=== PATIENT | female | born 1950 | race Caucasian/White ===

== ENCOUNTER 2018-08-24 11:18 | Observation (INO) | payer MEDICARE ==
[~2018-08-24] VITALS: Ht 167.6 cm; Wt 97.5 kg
--- NOTE | ~2018-08-24 | CON ---
[address] [address] CONSULTATION Name: JOSE WALTON Abimael Room: [address] IN .R.#: [id number] Admission: 08/24/18 Attend Phys: Robert Aguilar MD Discharge: Date of : 54 Report #: [id number] THIS REPORT FOR: //name// CC: Esequiel Aguilar DATE OF SERVICE: 08/25/2018 HISTORY OF PRESENT ILLNESS: This is a 67-year-old female patient, who was evaluated by me for an episode of headache, facial weakness, some visual blurring yesterday. All her symptoms have resolved. She has a longstanding history of migraine. She indicates that if she sticks to proper diet, she gets migraine headache once every few months. She does not believe she ever had visual symptoms like this before. She apparently had some speech difficulty also. She underwent a CT scan of the head and subsequently she underwent CT angiogram that was also unremarkable, although the posterior circulation is not well seen because of the timing. The patient continued to be stable. She was not on aspirin or any cholesterol medication. REVIEW OF SYSTEMS: Indicate that she does have a history of migraine. She was having a viral syndrome with nausea, vomiting, and diarrhea. She does have a history of depression and a history of hemangioma. Otherwise, the 14-point review of system is unremarkable. I do not think she had a very good neurological followup. She denies any eye, ENT, cardiac, respiratory, GI, , musculoskeletal, constitutional, dermatological, hematological, psychiatric, throat, allergic symptoms associated with present symptomatology. PAST MEDICAL HISTORY: Positive for migraine. FAMILY HISTORY: Unremarkable. SOCIAL HISTORY: She does not smoke or drink alcohol on a regular basis. PHYSICAL EXAMINATION: Indicates she is alert and responsive. She can follow simple commands. Her speech, concentration, fund of knowledge and memory is at her baseline. Cranial nerve examination 2-12 looks unremarkable. She has symmetrical strength, sensation, reflexes, and tone in all 4 extremities. There is no meningeal sign. There is no carotid bruit. Pulses are palpable. She has no edema, cyanosis, or jaundice. Cardiac examinations appear unremarkable. No respiratory difficulty was noticed. Blood pressure is 145/90, respirations 16, pulse is 80, temperature is 98. This patient is pretty significantly anemic at hemoglobin of 8.8. IMPRESSION: This patient had symptoms suggestive of TIA. I do not know if she had a small stroke or not. 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 [address] CONSULTATION Name: JOSE WALTON Room: [address] IN .R.#: [id number] Admission: 08/24/18 Attend Phys: Robert Aguilar MD Discharge: Date of : 54 Report #: [id number] RECOMMENDATIONS: The next step will be doing an MRI in this patient. The patient is extremely claustrophobic and does not want to do the MRI here. She wants to go home and do the MRI as an outpatient in open [facility]. Since her CT angiogram is okay, it will be okay to let her go, but she needs to get that MRI pretty soon. She will also need MRI of the brain and we will go ahead and do an MRA of the elim ira of [place] since the pictures of the posterior circulation was not very good on the CT angiogram. I will check sed rate in this patient. We will try to arrange that. She needs the workup for her anemia. This is because she is going to be on aspirin and a GI pathology must be excluded before she is put on aspirin. I will defer that to Dr. Aguilar. I did discuss that aspect with the patient. We can help arrange the MRI for this patient and I asked her to contact my office. Thank you very much for this referral and if you have any questions, please feel free to contact me. The patient was discussed with Dr. Aguilar. By: 1025 1216Thong Adler MD /demi
[~2018-08-24 11:18] MED LIST: EFFEXOR XR37.5 MG PO; FLEXERIL PO; PREVACID 30MG C30 M1 PO; RELPAX40 MG PO; TOPROL XL25 MG PO; XANAX XR1 MG PO
[2018-08-24 11:25] VITALS: BP 185/95
[2018-08-24] MEDS ORDERED: PROTONIX 20 MG20 M1 PO (11:48)
[2018-08-24 11:49] LABS: ABSOLUTE BASOPHILS 0.1 thou/uL (0.0-0.2); ABSOLUTE EOSINOPHILS 0.1 thou/uL (0.0-0.7); ABSOLUTE LYMPHOCYTES 1.6 thou/uL (0.8-5.3); ABSOLUTE MONOCYTES 0.4 thou/uL (0.0-1.2); ABSOLUTE NEUTROPHILS 4.6 thou/uL (1.6-8.1); BASOPHILS 1.1 %; EOSINOPHILS 1.1 %; HEMATOCRIT 30.5 % (37.0-47.0); HEMOGLOBIN 9.6 gm/dL (12.0-15.0); LYMPHOCYTES 24.1 %; MCH 23.2 pg (26.0-34.0); MCHC 31.6 g/dL (28.0-37.0); MCV 73.2 fL (80.0-100.0); MONOCYTES 5.8 %; MPV 7.4 fl. (7.2-11.1); NUCLEATED RBCS 0 /100WBC; PLATELET COUNT* 355 thou/uL (150-400); POLYS 67.9 %; RBC 4.16 mil/uL (4.20-5.00); RDW-CV 18.6 % (10.5-14.5); WBC 6.8 thou/uL (4.0-11.0)
[2018-08-24 11:59] LABS: ANION GAP 13 mmol/L (7-16); BUN 8 mg/dL (7-18); CALCIUM 8.6 mg/dL (8.5-10.1); CHLORIDE 103 mmol/L (98-107); CO2 25 mmol/L (21-32); CREATININE 0.7 mg/dL (0.6-1.3); GLUCOSE 117 mg/dL (70-99); POTASSIUM 3.6 mmol/L (3.5-5.1); SODIUM 141 mmol/L (136-145)
[2018-08-24 12:01] LABS: APTT 24.3 Seconds (25.0-31.3); PROTIME 10.1 Seconds (9.20-11.50)
[2018-08-24 12:09] LABS: ALBUMIN 3.6 g/dL (3.4-5.0); ALKALINE PHOSPHATASE 184 U/L (46-116); NT-PRO BRAIN NAT PEPTIDE 165 pg/mL (<300); SGOT 19 U/L (15-37); SGPT 29 U/L (30-65); TOTAL BILIRUBIN 0.3 mg/dL (<0.1-1.0); TOTAL PROTEIN 7.3 g/dL (6.4-8.2); TROPONIN-I LEVEL <0.06 ng/mL (<0.06)
[2018-08-24 13:27] VITALS: BP 171/77
--- NOTE | 2018-08-24 14:20 | EKG ---
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1950 Requested By: Genevieve Davenport Order Number: [id number] MD: Noel Petty Measurements Intervals [place] Rate: 84 P: 14 DE: 171 QRS: 34 QRSD: 91 T: 42 QT: 403 QTc: 477 Interpretive Statements Sinus rhythm Abnormal R-wave progression, early transition Compared to ECG 03/30/2016 15:58:32 Sinus tachycardia no longer present Electronically Signed On 08-24-2018 14:20:04 CDT by Noel Petty [email or web address] <ELECTRONICALLY SIGNED> By: Noel Petty MD, [facility] 08/24/18 1420 1147 1147 Noel Petty MD, [facility] /EPI
[2018-08-24 14:29] LABS: % SATURATION 5 % (20-39); IRON 25 ug/dL (50-175)
--- NOTE | 2018-08-24 15:43 | 2DMMODE ---
[place] [address] 2 D/M-MODE ECHOCARDIOGRAM Name: JOSE WALTON Abimael Room: [place] [address] ADM IN [facility]#: [id number] Admission: 08/24/18 Attend Phys: Robert Aguilar, Discharge: Date of : 54 Date of Service: 08/24/18 1543 Report #: [id number] THIS REPORT FOR: //name// APPROVED REPORT Study performed: 08/24/2018 14:29:29 EXAM: Comprehensive 2D, Doppler, and color-flow Echocardiogram Patient Location: In-Patient Room #: er Status: routine BSA: 1.96 HR: 84 bpm BP: 171/77 mmHg Rhythm: NSR Other Information Study Quality: Good Indications CVA/TIA Echo Enhancing Agent Indication: Rule out Shunt Agent(s) / Amount(s) Used: Agitated Saline 10 cc 2D Dimensions IVSd: 12.26 (7-11mm) LVOT Diam: 20.10 (18-24mm) LVDd: 31.43 mm PWd: 12.81 (7-11mm) Ascending Ao: 30.23 (22-36mm) LVDs: 21.81 (25-40mm) Volumes Left Atrial Volume (Systole) LA ESV Index: 36.70 mL/m2 Aortic Valve AoV Peak Lee.: 1.63 m/s AO Peak Gr.: 10.65 mmHg LVOT Max P.52 mmHg AO Mean Gr.: 5.51 mmHg LVOT Mean P.50 mmHg LVOT Max V: 1.37 m/s AO V2 VTI: 32.33 cm LVOT Mean V: 0.85 m/s KIRSTEN (VTI): 2.84 cm2 LVOT V1 VTI: 28.96 [place] [address] 2 D/M-MODE ECHOCARDIOGRAM Name: JOSE WALTON Room: [address] IN ..#: [id number] Admission: 08/24/18 Attend Phys: Robert Aguilar, Discharge: Date of : 54 Date of Service: 08/24/18 1543 Report #: [id number] E/A Ratio: 0.63 MV Decel. Time: 149.18 ms MV E Max Lee.: 0.67 m/s MV PHT: 43.26 ms MVA (PHT): 5.09 cm2 TDI E/Lateral E': 6.70 E/Medial E': 9.57 Medial E' Lee.: 0.07 m/s Lateral E' Lee.: 0.10 m/s Pulmonary Valve PV Peak Lee.: 1.05 m/s PV Peak Gr.: 4.42 mmHg Tricuspid Valve RAP Estimate: 5.00 mmHg TR Peak Gr.: 25.73 mmHg RVSP: 30.00 mmHg PA Pressure: 30.00 mmHg Left Ventricle The left ventricle is normal size. There is normal LV segmental wall motion. Mild concentric left ventricular hypertrophy. Left ventricular systolic function is normal. The left ventricular ejection fraction is within the normal range. LVEF is 65-70%. Grade I - abnormal relaxation pattern. Right Ventricle The right ventricle is normal size. The right ventricular systolic function is normal. Atria Left atrium is mildly dilated. Interatrial septum is intact without evidence of ASD or PFO. The right atrium size is normal. Aortic Valve The aortic valve is normal in structure. No aortic regurgitation is present. There is no aortic valvular stenosis. Mitral Valve The mitral valve is normal in structure. There is no mitral valve regurgitation noted. No evidence of mitral valve stenosis. Tricuspid Valve The tricuspid valve is normal in structure. Trace tricuspid regurgitation. estimated pa pressure 30 [place] [address] 2 D/M-MODE ECHOCARDIOGRAM Name: JOSE WALTON Room: [address] IN [facility].#: [id number] Admission: 08/24/18 Attend Phys: Robert Aguilar, Discharge: Date of : 54 Date of Service: 08/24/18 1543 Report #: [id number] Pulmonic Valve Pulmonic valve is not well visualized. There is no pulmonic valvular regurgitation. Great Vessels The aortic root is normal in size. IVC is normal in size and collapses >50% with inspiration. Pericardium There is no pericardial effusion. <Conclusion> Mild concentric left ventricular hypertrophy. LVEF is 65-70%. Left atrium is mildly dilated. Interatrial septum is intact without evidence of ASD or PFO. <ELECTRONICALLY SIGNED> By: Noel Petty MD, [facility] 08/24/18 1543 1543 1543 Noel Petty MD, FACC /INF
--- NOTE | 2018-08-24 18:13 | NUR ---
PATIENT ADMITTED TO [facility] THIS EVENING WITH HX OF FACIAL DROOP AND WEAKNESS. PATIENT IS ALERT AND ORIENTED X 4. MINIMAL DROOPING NOTED ON ADMISSION. PATIENT ORIENTED TO ROOM AND PROCEDURES. PLACED ON TELE MONITOR. NIH PERFORMED. PATIENT ASSISTED TO BR WITH STANDBY ASSIST. TELE SHOWS NSR. PATIENT ABLE TO TAKE WATER WITHOUT DIFFICULTY. DIET ORDERED. IV FLUIDS CONTINUED FROM THE ER AT 100 ML/HR. WILL REPORT TO SERVICE PLANNER.
[2018-08-24 20:00] VITALS: BP 154/80
[2018-08-24] MEDS ORDERED: EFFEXOR XR150 MG PO (22:26)
[2018-08-25] VITALS: BP 124/58
[2018-08-25 02:05] LABS: GLYCOHEMOGLOBIN (HGB A1C) 6.7 % (4.8-5.6)
[2018-08-25 04:00] VITALS: BP 169/84
--- NOTE | 2018-08-25 04:21 | NUR ---
ASSUMED PT CARE APPROX 1930. PT IS AWAKE AND ORIENTED X4. VSS ON RA. CAEDIAC MONITOR IN PLACE TRACING SR. ASSESSMENT DONE AND CHARTED. PT COMPLAINED OF MILD HEADACHE RELIEVED BY TYLENOL GIVEN PER APR. NIH DONE AND CHARTED. CALL LIGHT WITHIN REACH. PT IS UP STANDBY TO THE BATHROOM. FALL PRECAUTIONS IN PLACE. CALL LIGHT WITHIN REACH. HOURLY ROUNDING DONE FOR PT SAFETY.
[2018-08-25 04:36] LABS: HEMATOCRIT 27.8 % (37.0-47.0); HEMOGLOBIN 8.8 gm/dL (12.0-15.0); MCH 23.2 pg (26.0-34.0); MCHC 31.7 g/dL (28.0-37.0); MCV 73.1 fL (80.0-100.0); MPV 7.6 fl. (7.2-11.1); RBC 3.8 mil/uL (4.20-5.00); RDW-CV 18.5 % (10.5-14.5); WBC 7.8 thou/uL (4.0-11.0)
[2018-08-25 04:47] LABS: CALCIUM 8.9 mg/dL (8.5-10.1); CREATININE 0.9 mg/dL (0.6-1.3); MAGNESIUM 2.2 mg/dL (1.8-2.4); POTASSIUM 3.7 mmol/L (3.5-5.1)
[2018-08-25 05:21] LABS: CHOLESTEROL 237 mg/dL (<200); HDL CHOLESTEROL 97 mg/dL (>40); LDL CHOLESTEROL 132 mg/dL (<100); SERUM ASSESSMENT Clear; TC:HDL 2.4 Ratio (Not establshd); TRIGLYCERIDE 41 mg/dL (<150); VLDL 8 mg/dL (<40)
[2018-08-25 08:57] VITALS: BP 145/90
[2018-08-25 11:26] VITALS: BP 125/67
--- NOTE | 2018-08-25 11:33 | NUR ---
Pt is A&O. Resides at home with her disabled dtr, and her son stays there sometimes also. Dtr is disabled and has 24 hr caregivers, that complete the cooking and cleaning for both Pt and dtr. Pt still drives. Pt has a home cpap. No hx of HH or SNF. Goal is home at tx, no needs anticipated. Following.
[2018-08-25] MEDS ORDERED: LIPITOR40 MG PO (13:35)
[2018-08-25] MEDS ORDERED: METFORMIN HCL500 MG PO (13:35)
[2018-08-25] MEDS ORDERED: ASPIRIN81 M2 PO (13:35)
[2018-08-25] MEDS ORDERED: PREVACID 24HR15 MG PO (14:16)
[2018-08-25 14:22] VITALS: BP 125/67
--- NOTE | 2018-08-25 15:12 | NUR ---
ASSUMED CARE OF PT AROUND 0730 THIS AM. REFER TO ASSESSMENT. NIH 0. PT DECLINES GI WORKUP FOR ANEMIA AND REQUESTING OUTPATIENT. ALSO, REQUESTING FOLLOW UP MRI OUTPATIENT D/T CLAUSTERPHOBIA. PT GIVEN DC INSTRUCTIONS AND VERBALIZES UNDERSTANDING. ARRANGED TRANSPORTATION AROUND 1600 THIS EVENING. NO OTHER CONCERNS AT THIS TIME. CLWR. WCTM.
--- NOTE | 2018-08-25 16:50 | NUR ---
PT. DISCHARGED TO HOME PRIOR TO O.T. EVAL. PLEASE ORDER FURTHER O.T. SERVICES IF NEEDED.
== END 2018-08-25 16:30 | disposition home or self-care (01) ==
LOC: M.ERS 11:18 → M.2W 12:31 → M.TBA-ER 12:31 → M.2W 16:27
PROVIDERS: Personal Emergency Response Attendant; ADMIT Internal Medicine
DX: I16.1 Hypertensive emergency (principal); G45.9 Transient cerebral ischemic attack, unspecified; G43.909 Migraine, unspecified, not intractable, without status migrainosus; K21.9 Gastro-esophageal reflux disease without esophagitis; A08.4 Viral intestinal infection, unspecified; D50.9 Iron deficiency anemia, unspecified; E11.65 Type 2 diabetes mellitus with hyperglycemia; E86.9 Volume depletion, unspecified; I10 Essential (primary) hypertension

== ENCOUNTER → 2018-09-29 | Outpatient (CLI) | payer MEDICARE ==
[~2018-09-29] MED LIST changes: +ASPIRIN81 M2 PO; +EFFEXOR XR150 MG PO; +LIPITOR40 MG PO; +METFORMIN HCL500 MG PO; +PREVACID 24HR15 MG PO; +PROTONIX 20 MG20 M1 PO
[2018-09-29 12:01] LABS: HEMATOCRIT 28.5 % (37.0-47.0); HEMOGLOBIN 8.8 gm/dL (12.0-15.0); MCH 22.7 pg (26.0-34.0); MCHC 30.8 g/dL (28.0-37.0); MCV 73.8 fL (80.0-100.0); MPV 7.1 fl. (7.2-11.1); NUCLEATED RBCS 0 /100WBC; PLATELET COUNT* 318 thou/uL (150-400); RBC 3.87 mil/uL (4.20-5.00); RDW-CV 20.1 % (10.5-14.5)
[2018-09-29 12:15] LABS: ALBUMIN 3.5 g/dL (3.4-5.0); CALCIUM 8.4 mg/dL (8.5-10.1); CREATININE 0.8 mg/dL (0.6-1.3); POTASSIUM 3.9 mmol/L (3.5-5.1); TOTAL BILIRUBIN 0.3 mg/dL (<0.1-1.0); TOTAL PROTEIN 7.1 g/dL (6.4-8.2)
[2018-09-29 12:42] LABS: ABSOLUTE BASOPHILS 0.1 thou/uL (0.0-0.2); ABSOLUTE EOSINOPHILS 0.1 thou/uL (0.0-0.7); ABSOLUTE LYMPHOCYTES 1.1 thou/uL (0.8-5.3); ABSOLUTE NEUTROPHILS 3.8 thou/uL (1.6-8.1); ANISOCYTOSIS 2+; ATYPICAL LYMPHS 4 %; HYPOCHROMASIA 2+; METAMYELOCYTES 1 %; MICROCYTES 2+; POLYCHROMASIA 1+
--- NOTE | 2018-09-29 14:51 | HEMONC ---
[address] [address] HEMATOLOGY ONCOLOGY NOTE Name: JOSE WALTON Room: [facility]#: [id number] Admission: 09/29/18 Attend Phys: Tano Breen MD Discharge: Date of : 54 Report #: [id number] THIS REPORT FOR: //name// CC: Esequiel Breen DATE OF SERVICE: 09/29/2018 CLINIC NOTE REASON FOR CONSULTATION: Microcytic anemia. SUBJECTIVE: A 67-year-old female who has been evaluated by Neurology Service after she had a stroke, which was confirmed by imaging. During her workup, she was found to have microcytic anemia. Her hemoglobin was 8.8 on 08/25 with MCV of 7.1. Her iron studies showed low saturation of 5% with a ferritin of 9, low normal. She had elevated TIBC 473. The patient reported ice cravings in addition to exhaustion, exercise intolerance, and shortness of breath. The patient denies any hematuria or blood in the stool. She got colonoscopy 2 years ago, and she was told it was negative. REVIEW OF SYSTEMS: All systems were reviewed. It was negative except the above. PAST MEDICAL HISTORY: Recent stroke, hypertension, dyslipidemia. PAST SURGICAL HISTORY: Tonsillectomy. MEDICATIONS: She is currently on atorvastatin, metoprolol, sertraline. ALLERGIES: No known allergies. FAMILY HISTORY: Negative, noncontributory. SOCIAL HISTORY: No smoking, no alcohol abuse, no drug abuse. PHYSICAL EXAMINATION: VITAL SIGNS: Today, blood pressure is 142/80, pulse is 95, respirations 18, temperature is 98.4, pulse ox is 98% on room air. GENERAL: The patient was sitting in chair, was not in acute distress. LUNGS: Clear to auscultations bilaterally. HEART: Regular rate and rhythm. S1, S2 within normal limits. ABDOMEN: Soft, nontender, and nondistended. Bowel sounds positive. LABORATORY DATA: Most recent ones on 08/25; WBC 7.8, hemoglobin 8.8, MCV 73.1, platelets 349. Iron low at 25, TIBC 473, ferritin 9 which is a low normal, B12 [place] [address] HEMATOLOGY ONCOLOGY NOTE Name: JOSE WALTON Room: [facility]#: [id number] Admission: 09/29/18 Attend Phys: Tano Breen MD Discharge: Date of : 54 Report #: [id number]. ASSESSMENT AND PLAN: A 67-year-old female who was evaluated in the settings of cerebrovascular accident. At this point, the patient does not have any residual defect. The patient was found to have a microcytic anemia. Her symptoms are typical for iron deficiency. RECOMMENDATIONS: 1. Due to recent stroke, I would like to rapidly correct her hemoglobin as soon as possible. She has been on oral iron for the last 2 weeks. We will arrange for intravenous iron with Feraheme 510 mg intravenously for 2 doses. 2. We will complete anemia workup by obtaining B12, folate, hemolysis parameters peripheral blood smear, and myeloma markers. 3. We will refer the patient to GI, Dr. Cohen for GI evaluation for unexplained iron deficiency. In addition to that, I would like to obtain a urinalysis. <ELECTRONICALLY SIGNED> By: Tano Breen MD 09/29/18 1451 1112 1214Tano Breen MD /nt
[2018-09-29 21:05] LABS: IgA 215 mg/dL (87-352); IgG 764 mg/dL (700-1600); IgM 136 mg/dL (26-217)
[2018-09-30 07:08] LABS: HEMOGLOBIN 8.7 g/dL (11.1-15.9)
[2018-09-30 15:07] LABS: KAPPA FREE LIGHT CHAINS 16.5 mg/L (3.3-19.4); LAMBDA FREE LIGHT CHAINS 11.7 mg/L (5.7-26.3)
[2018-10-01 16:06] LABS: GLOBULIN TOTAL 3.1 g/dL (2.2-3.9); M-SPIKE Not Observed g/dL (Not Observed)
== END ==
LOC: M.RTH 05:18
PROVIDERS: Internal Medicine
DX: D50.9 Iron deficiency anemia, unspecified (principal); I10 Essential (primary) hypertension; E78.5 Hyperlipidemia, unspecified

== ENCOUNTER → 2018-09-30 | Outpatient (CLI) | payer MEDICARE ==
[2018-09-30 13:15] VITALS: BP 174/92
[2018-09-30 14:37] VITALS: BP 162/91
--- NOTE | 2018-09-30 14:46 | NUR ---
ARRIVED AMUBLATORY. MADE SELF COMFORTABLE IN RECLINER. IV STARTED WITH OUT DIFFICULTY. INFUSION COMPLETED AND TOERLATED WELL. DISCHARGE INSTRUCTION REVIEWED. MERYL QUESTIONS OR NEEDS
[2018-09-30 14:53] LABS: URINE BILIRUBIN NEGATIVE (Negative); URINE BLOOD NEGATIVE (Negative); URINE CLARITY CLEAR; URINE COLOR YELLOW; URINE GLUCOSE-RANDOM NEGATIVE (Negative); URINE KETONES NEGATIVE (Negative); URINE LEUKOCYTES TRACE (Negative); URINE NITRITE NEGATIVE (Negative); URINE PROTEIN NEGATIVE (Negative); URINE SPECIFIC GRAVITY 1.025 (1.005-1.030); URINE UROBILINOGEN 0.2 E.U./dl (0.2-1.0)
[2018-09-30 15:05] LABS: CRYSTALS None Seen /LPF (None Seen); HYALINE CASTS 0-3 Few /LPF (None Seen); MUCUS None Seen strn/LPF (None Seen); SQUAMOUS >10 Many /LPF (0-3); URINE WBC 0-5 Rare /HPF (0-5)
[2018-09-30 15:06] LABS: URINE RBC None Seen /HPF (0-2)
== END ==
LOC: M.INFUS 05:03
PROVIDERS: Internal Medicine
DX: D50.9 Iron deficiency anemia, unspecified (principal)

== ENCOUNTER → 2018-10-07 | Outpatient (CLI) | payer MEDICARE ==
--- NOTE | 2018-10-07 08:11 | NUR ---
ARRIVED AMBULATORY. MADE SELF COMFORTABLE IN RECLINER. 24 GAUGE IV STARTED IN PT'S LEFT HAND BY NAE CHEN RN. INFUSION COMPLETED AND TOLERATED WELL. INSTRUCTIONS REVIEWED. DENIES QUESTIONS OR NEEDS AT TIME OF DISCHARGE.
[2018-10-07 08:15] VITALS: BP 142/88
== END ==
LOC: M.INFUS 04:56
DX: D50.9 Iron deficiency anemia, unspecified (principal)

== ENCOUNTER → 2018-10-14 | Outpatient (CLI) | payer MEDICARE ==
[2018-10-14 16:56] LABS: ABSOLUTE BASOPHILS 0.1 thou/uL (0.0-0.2); ABSOLUTE EOSINOPHILS 0.1 thou/uL (0.0-0.7); ABSOLUTE LYMPHOCYTES 1.1 thou/uL (0.8-5.3); ABSOLUTE MONOCYTES 0.4 thou/uL (0.0-1.2); ABSOLUTE NEUTROPHILS 3.5 thou/uL (1.6-8.1); BASOPHILS 1.1 %; EOSINOPHILS 2.4 %; HEMATOCRIT 32.8 % (37.0-47.0); HEMOGLOBIN 10.5 gm/dL (12.0-15.0); LYMPHOCYTES 22.3 %; MCH 26.3 pg (26.0-34.0); MCV 82.1 fL (80.0-100.0); MPV 7.5 fl. (7.2-11.1); NUCLEATED RBCS 0 /100WBC; PLATELET COUNT* 280 thou/uL (150-400); POLYS 67.2 %; RBC 3.99 mil/uL (4.20-5.00); RDW-CV 29.9 % (10.5-14.5); WBC 5.2 thou/uL (4.0-11.0)
[2018-10-14 17:34] LABS: % SATURATION 38 % (20-39); IRON 134 ug/dL (50-175)
[2018-10-14 17:45] LABS: PLATELET ESTIMATE ADEQUATE
== END ==
LOC: M.LAB 16:35
PROVIDERS: Internal Medicine
DX: D50.9 Iron deficiency anemia, unspecified (principal)

== ENCOUNTER → 2018-10-16 | Outpatient (CLI) | payer MEDICARE | LOC: M.RAD 09:00 | DX: K44.9 Diaphragmatic hernia without obstruction or gangrene (principal); K21.9 Gastro-esophageal reflux disease without esophagitis; Z86.73 Personal history of transient ischemic attack (TIA), and cerebral infarction without residual deficits ==

== ENCOUNTER → 2018-10-27 | Outpatient (CLI) | payer MEDICARE ==
[2018-10-27 10:58] LABS: ABSOLUTE BASOPHILS 0.1 thou/uL (0.0-0.2); ABSOLUTE EOSINOPHILS 0.1 thou/uL (0.0-0.7); ABSOLUTE LYMPHOCYTES 1.2 thou/uL (0.8-5.3); ABSOLUTE MONOCYTES 0.3 thou/uL (0.0-1.2); ABSOLUTE NEUTROPHILS 2.8 thou/uL (1.6-8.1); BASOPHILS 1.4 %; EOSINOPHILS 2.8 %; HEMATOCRIT 37.6 % (37.0-47.0); LYMPHOCYTES 26.8 %; MCH 27.2 pg (26.0-34.0); MCHC 31.8 g/dL (28.0-37.0); MCV 85.4 fL (80.0-100.0); MONOCYTES 7.5 %; MPV 7.7 fl. (7.2-11.1); NUCLEATED RBCS 0 /100WBC; PLATELET COUNT* 264 thou/uL (150-400); POLYS 61.5 %; RBC 4.41 mil/uL (4.20-5.00); RDW-CV 29.7 % (10.5-14.5); WBC 4.5 thou/uL (4.0-11.0)
--- NOTE | 2018-10-29 15:41 | HEMONC ---
[address] [address] HEMATOLOGY ONCOLOGY NOTE Name: JOSE WALTON Room: [facility]#: [id number] Admission: 10/27/18 Attend Phys: Tano Breen MD Discharge: Date of : 54 Report #: [id number] THIS REPORT FOR: //name// CC: DAWNA Love from Neurology Channing Marshall DATE OF SERVICE: 10/27/2018 CLINIC NOTE REASON FOR CONSULTATION: Iron deficiency. HISTORY OF PRESENT ILLNESS: The patient presented today after she received intravenous iron. She noticed significance in terms of ice cravings. She noticed some increased energy; however, most recently, her taste bud has changed. She has been reporting persistent nausea every morning. REVIEW OF SYSTEMS: All systems reviewed. It was negative except the above. PAST MEDICAL, SOCIAL AND FAMILY HISTORY: Unchanged from last visit. The patient was referred to Dr. Cohen and she is in the process of having EGD and colonoscopy after Neurology clearance after she had the recent stroke. PHYSICAL EXAMINATION: VITAL SIGNS: Today, temperature is 98.1, blood pressure is 142/92, pulse is 84, respirations are 18 and saturation is 96% on room air. GENERAL: The patient was sitting in chair, was not in acute distress. LUNGS: Clear to auscultations bilaterally. HEART: Regular rate and rhythm. S1, S2 within normal limits. ABDOMEN: Soft, nontender and nondistended. Bowel sounds positive. LABORATORY DATA: On 10/14, hemoglobin improved to the level of 10.5, MCV corrected to 82.1. On 08/25, hemoglobin was 8.8, on 08/29 was 8.7. Also, her iron studies showed improvements. Her ferritin level was 9 on 08/24 and improved to 362 on 10/14/2018. No evidence of M-spike on serum electrophoresis. Urinalysis came back negative. ASSESSMENT AND PLAN: 1. A 67-year-old female was diagnosed with iron deficiency anemia in the settings of stroke; however, the patient has significant improvement in her labs and iron studies and in her symptoms. I would like to continue to monitor the patient. She is responding appropriately. We will repeat CBC today and repeat in 6 [place] [address] HEMATOLOGY ONCOLOGY NOTE Name: JOSE WALTON Room: [facility].#: [id number] Admission: 10/27/18 Attend Phys: Tano Breen MD Discharge: Date of : 54 Report #: [id number] 2. I do strongly recommend to obtain EGD and colonoscopy and capsule endoscopy if needed to investigate the reason of her iron deficiency. <ELECTRONICALLY SIGNED> By: Tano Breen MD 10/29/18 1541 1021 2259MD rafael Daly
== END ==
LOC: M.RTH 04:49
PROVIDERS: Internal Medicine
DX: D50.9 Iron deficiency anemia, unspecified (principal)

== ENCOUNTER → 2018-12-04 | Outpatient (CLI) | payer MEDICARE ==
[2018-12-04 09:59] LABS: ABSOLUTE EOSINOPHILS 0.1 thou/uL (0.0-0.7); ABSOLUTE LYMPHOCYTES 0.8 thou/uL (0.8-5.3); ABSOLUTE MONOCYTES 0.4 thou/uL (0.0-1.2); ABSOLUTE NEUTROPHILS 3.7 thou/uL (1.6-8.1); BASOPHILS 0.9 %; EOSINOPHILS 2.2 %; HEMATOCRIT 37.8 % (37.0-47.0); HEMOGLOBIN 12.7 gm/dL (12.0-15.0); LYMPHOCYTES 15.8 %; MCHC 33.5 g/dL (28.0-37.0); MCV 89.5 fL (80.0-100.0); MONOCYTES 7.1 %; MPV 7.9 fl. (7.2-11.1); NUCLEATED RBCS 0 /100WBC; PLATELET COUNT* 235 thou/uL (150-400); RBC 4.22 mil/uL (4.20-5.00); RDW-CV 22.3 % (10.5-14.5)
[2018-12-04 10:30] LABS: % SATURATION 16 % (20-39); IRON 49 ug/dL (50-175)
[2018-12-04 10:50] LABS: PLATELET ESTIMATE ADEQUATE
[2018-12-04 10:51] LABS: ANISOCYTOSIS 2+; OVALOCYTES Occasional
== END ==
LOC: M.LAB 09:37
PROVIDERS: Internal Medicine
DX: D50.9 Iron deficiency anemia, unspecified (principal)

== ENCOUNTER → 2018-12-08 | Outpatient (CLI) | payer MEDICARE ==
--- NOTE | 2018-12-09 17:37 | HEMONC ---
[address] [address] HEMATOLOGY ONCOLOGY NOTE Name: JOSE WALTON Room: [facility]#: [id number] Admission: 12/08/18 Attend Phys: Tano Breen MD Discharge: Date of : 54 Report #: [id number] THIS REPORT FOR: //name// CC: Esequiel Cohen DO Tano Breen DATE OF SERVICE: 12/08/2018 DIAGNOSIS: Iron deficiency. SUBJECTIVE: The patient presented today after she received intravenous iron. Her second dose was around 1 month ago. The patient continues to be fatigued and exhausted. No ice cravings. However, she reported persistent nausea. The patient continues to deny any hematochezia, melena or hematuria. REVIEW OF SYSTEMS: All systems are reviewed. It was negative except the above. MEDICATIONS: List has been reviewed. PHYSICAL EXAMINATION: VITAL SIGNS: Today, blood pressure 137/89, pulse 71, respirations 20, temperature is 97.4, sat is 96% on room air. GENERAL: The patient was sitting in chair, was not in acute distress. LUNGS: Clear to auscultations bilaterally. HEART: Regular rate and rhythm. S1, S2 within normal limits. LABORATORY DATA: Hemoglobin, on 12/04/2018, of 12.7, MCV 89.5. Iron studies showed a significant trend down with her ferritin from 362 to the 36 level. Also, saturation became low at 16% compared to the previous level. ASSESSMENT AND PLAN: A 68-year-old female who has been diagnosed with iron deficiency. She received intravenous iron. Despite of normal hemoglobin, she has a significant drop in her ferritin, which was not expected. The patient continues to have symptoms of nausea, never had EGD or colonoscopy. RECOMMENDATIONS: 1. Follow up labs in 2 months to evaluate whether she is going to need any further intravenous iron. 2. We will refer to GI, Dr. Cohen, for iron deficiency anemia workup, [place] [address] HEMATOLOGY ONCOLOGY NOTE Name: JOSE WALTON Room: [facility].#: [id number] Admission: 12/08/18 Attend Phys: Tano Breen MD Discharge: Date of : 54 Report #: [id number] including EGD and colonoscopy. Also, I would like to obtain urinalysis and fecal occult blood at stool. <ELECTRONICALLY SIGNED> By: Tano Breen MD 12/09/18 1737 1008 1041Tano Breen MD /nt
== END ==
LOC: M.RTH 05:33
DX: E61.1 Iron deficiency (principal)

== ENCOUNTER → 2019-01-08 | Day surgery (SDC) | payer MEDICARE ==
[~2019-01-08] MED LIST changes: +ZOFRAN4 MG PO
--- NOTE | ~2019-01-08 | PROC ---
[address] [place] [address] PROCEDURE REPORT Name: JOSE WALTON Room: [facility].#: [id number] Admission: 01/08/19 Attend Phys: Channing Cohen DO Discharge: Date of : 54 Report #: [id number] THIS REPORT FOR: //name// For GI report, please see the Provation report in Perceptive 7 content. By: 0649Medical Records Staff STEPH /KALEB
[2019-01-08 09:48] LABS: CALCIUM 8.9 mg/dL (8.5-10.1); CREATININE 0.8 mg/dL (0.6-1.3); POTASSIUM 3.6 mmol/L (3.5-5.1)
[2019-01-08 09:52] LABS: ALBUMIN 3.7 g/dL (3.4-5.0); TOTAL BILIRUBIN 0.3 mg/dL (<0.1-1.0); TOTAL PROTEIN 7.3 g/dL (6.4-8.2)
--- NOTE | 2019-01-12 15:07 | PATH ---
[facility] [address] [place] [address] PATHOLOGY RPT PROCEDURE Name: JOSE WALTON Room: [facility].#: [id number] Admission: 01/08/19 Date of : 54 Discharge: Report #: [id number] Path Case #: [id number] [facility] Accession Number: [id number] . 01 Material submitted: . PART A: small bowel - SMALL BOWEL BIOPSIES PART B: stomach - BIOPSIES OF MID GASTRIC BODY POLYPS PART C: colon - ASCENDING COLON POLYP. Modifiers: ascending PART D: rectum - RECTAL POLYP . 01 Clinical history: . Chronic nausea, iron deficiency anemia . 02 Diagnosis: A. Small bowel biopsies: - Normal small intestinal/duodenal mucosa. . B. Biopsies of mid gastric body polyps: - Multiple fundic gland polyps, negative for dysplasia/adenomatous changes. . C. Ascending colon polyp: - Tubular adenoma, negative for high grade dysplasia. . D. Rectal polyp: - Hyperplastic polyp. (ELPIDIO/db; 01/12/2019) LBQ 01/12/2019 1057 Local . 02 Electronically signed: . Alfred Scott MD, Pathologist NPI- [id number] . 01 Gross description: . A. Received in formalin labeled "Zac Jose, small bowel biopsies for iron deficiency anemia", are 3 segments of squires soft tissue measuring 0.7 x 0.5 x 0.3 cm in aggregate dimensions and ranging from 0.4 to 0.6 cm in maximum dimension. The specimen is submitted entirely in cassette A1. . B. Received in formalin labeled "Tomasa Waltonne, biopsies of mid-gastric body polyps", are 4 segments of squires soft tissue measuring 0.9 x 0.9 x 0.2 cm in aggregate dimensions and ranging from 0.4 to 0.5 cm in maximum dimension. The specimen is submitted entirely in cassette B1. . C. Received in formalin labeled "Jose Walton", and additionally verified via the problem specimen form as "ascending colon polyp," is a single segment of squires soft tissue measuring 0.4 cm in maximum dimensions. The specimen is submitted entirely [place] [address] PATHOLOGY RPT PROCEDURE Name: JOSE WALTON Room: [facility].#: [id number] Admission: 01/08/19 Date of : 54 Discharge: Report #: [id number] Path Case #: [id number] . D. Received in formalin labeled "Zac, Jose, rectal polyp", is a single segment of squires soft tissue measuring 0.5 cm in maximum dimension. The specimen is entirely submitted in cassette D1. (TSD; 01/11/2019) TOB/TOB 01/12/2019 1053 Local . 02 Pathologist provided ICD-10: K31.7, D12.2, K62.1 . 02 CPT . 404743, 910837, 306102, 427194 Specimen Comment: A courtesy copy of this report has been sent to [phone], [phone] Specimen Comment: [phone] Specimen Comment: Report sent to ,DR PEREIRA / DR CUEVA Specimen Comment: A duplicate report has been generated due to demographic updates. Performed at: 01 [facility] [address] [facility] [address], [place] [id number] MD Aditay Myers MD Phone: [phone] Performed at: [address] [facility] [address] [address] [place], [place] [id number] MD Alfred Scott MD Phone: [phone]
== END | disposition home or self-care (01) ==
LOC: M.SUR 06:49
PROVIDERS: Internal Medicine Gastroenterology
DX: D50.9 Iron deficiency anemia, unspecified (principal); D12.2 Benign neoplasm of ascending colon; K62.1 Rectal polyp; K22.8 Other specified diseases of esophagus; K57.30 Diverticulosis of large intestine without perforation or abscess without bleeding; K64.4 Residual hemorrhoidal skin tags; K31.7 Polyp of stomach and duodenum; K44.9 Diaphragmatic hernia without obstruction or gangrene; E11.9 Type 2 diabetes mellitus without complications; Z79.82 Long term (current) use of aspirin; Z79.899 Other long term (current) drug therapy; Z98.890 Other specified postprocedural states

== ENCOUNTER → 2019-01-21 | Outpatient (CLI) | payer MEDICARE ==
[2019-01-21 16:40] LABS: ABSOLUTE BASOPHILS 0.1 thou/uL (0.0-0.2); ABSOLUTE EOSINOPHILS 0.1 thou/uL (0.0-0.7); ABSOLUTE LYMPHOCYTES 1.6 thou/uL (0.8-5.3); ABSOLUTE MONOCYTES 0.4 thou/uL (0.0-1.2); ABSOLUTE NEUTROPHILS 2.8 thou/uL (1.6-8.1); BASOPHILS 1.4 %; HEMATOCRIT 37.9 % (37.0-47.0); HEMOGLOBIN 12.8 gm/dL (12.0-15.0); LYMPHOCYTES 31.9 %; MCH 31.6 pg (26.0-34.0); MCHC 33.9 g/dL (28.0-37.0); MCV 93.4 fL (80.0-100.0); MONOCYTES 7.2 %; MPV 7.8 fl. (7.2-11.1); NUCLEATED RBCS 0 /100WBC; PLATELET COUNT* 320 thou/uL (150-400); POLYS 56.5 %; RBC 4.06 mil/uL (4.20-5.00); RDW-CV 13.3 % (10.5-14.5); URINE BILIRUBIN NEGATIVE (Negative); URINE BLOOD NEGATIVE (Negative); URINE CLARITY CLEAR; URINE COLOR YELLOW; URINE GLUCOSE-RANDOM NEGATIVE (Negative); URINE KETONES NEGATIVE (Negative); URINE LEUKOCYTES TRACE (Negative); URINE NITRITE POSITIVE (Negative); URINE PROTEIN NEGATIVE (Negative); URINE SPECIFIC GRAVITY >= 1.030 (1.005-1.030); URINE UROBILINOGEN 0.2 E.U./dl (0.2-1.0); WBC 4.9 thou/uL (4.0-11.0)
[2019-01-21 17:07] LABS: MUCUS None Seen strn/LPF (None Seen); SQUAMOUS >10 Many /LPF (0-3)
[2019-01-21 17:08] LABS: CRYSTALS None Seen /LPF (None Seen); HYALINE CASTS 0-3 Few /LPF (None Seen); URINE RBC 0-2 Rare /HPF (0-2); URINE WBC 0-5 Rare /HPF (0-5)
[2019-01-21 17:37] LABS: % SATURATION 13 % (20-39); IRON 53 ug/dL (50-175)
== END ==
LOC: M.LAB 16:16
PROVIDERS: Internal Medicine
DX: D50.8 Other iron deficiency anemias (principal)

== ENCOUNTER → 2019-01-26 | Outpatient (CLI) | payer MEDICARE ==
--- NOTE | 2019-02-01 08:45 | HEMONC ---
[address] [address] HEMATOLOGY ONCOLOGY NOTE Name: JOSE WALTON Room: [facility]#: [id number] Admission: 01/26/19 Attend Phys: Tano Breen MD Discharge: Date of : 54 Report #: [id number] THIS REPORT FOR: //name// CC: DAWNA Cohen DO Tano Breen DATE OF SERVICE: 01/26/2019 REASON FOR CONSULTATION: Iron deficiency anemia, unclear source. SUBJECTIVE: The patient presented today as a 6 weeks followup. She has been feeling some ice cravings, in addition to fatigue and exercise intolerance. REVIEW OF SYSTEMS: All systems reviewed, it was negative except the above. PAST MEDICAL AND SOCIAL HISTORY: Unchanged from last visit. The patient had a capsule endoscopy, results are still pending. Her EGD and colonoscopy showed hiatal hernia, multiple mid body gastric polyps, which was benign. Colonoscopy showed multiple diverticula in the sigmoid colon with mild external hemorrhoids. PHYSICAL EXAMINATION: VITAL SIGNS: Today, blood pressure is 153/86, pulse is 73, respirations 20, temperature is 97.6, and saturations 96% on room air. GENERAL: The patient was sitting in chair, was not in acute distress. LUNGS: Clear to auscultations bilaterally. HEART: Regular rate and rhythm. S1, S2 within normal limits. ABDOMEN: Soft, nontender, nondistended, bowel sounds positive. LABS: Hemoglobin was 12.8 in January, prior to that in November and October it was 12.7, improved from 8.6 in 09/2018. However, her ferritin started to trend down from 362 in 09/2018 to 20 ng/mL on January. ASSESSMENT AND PLAN: A 68-year-old female who has been diagnosed with iron deficiency anemia, unclear source. Her workup including urinalysis came back negative for RBCs. EGD and colonoscopy showed diverticula and external hemorrhoids. The patient already [place] [address] HEMATOLOGY ONCOLOGY NOTE Name: JOSE WALTON [id number] Admission: 01/26/19 Attend Phys: Tano Breen MD Discharge: Date of : 54 Report #: [id number] RECOMMENDATIONS: We will arrange for second dose of Feraheme, monitor her labs in 3 months and followup on the capsule endoscopy results. <ELECTRONICALLY SIGNED> By: Tano Breen MD 02/01/19 [id number] Breen MD /nt
== END ==
LOC: M.RTH 05:11
DX: D64.9 Anemia, unspecified (principal); Z79.899 Other long term (current) drug therapy

== ENCOUNTER → 2019-02-05 | Outpatient (CLI) | payer MEDICARE ==
[2019-02-05 10:00] VITALS: BP 128/74
[2019-02-05 11:08] VITALS: BP 132/80
--- NOTE | 2019-02-05 11:10 | NUR ---
ARRIVED AMBULATORY. MADE SELF COMFORTABLE IN RECLINER. IV STARTED WITH OUT DIFFICULTY. DENIES ADVERSE REACTION TO PRIOR INFUSION OF SAME. INFUSION COMPLETED AND TOLERATED WELL. DENIES QUESTIONS OR NEEDS AT DISCHARGE.
== END ==
LOC: M.INFUS 02-04 10:00
DX: D50.8 Other iron deficiency anemias (principal)

== ENCOUNTER → 2019-02-12 | Outpatient (CLI) | payer MEDICARE ==
[2019-02-12 10:00] VITALS: BP 132/75
--- NOTE | 2019-02-12 11:03 | NUR ---
ARRIVED AMBULATORY. MADE SELF COMFORTABLE. DENEIS ADVERSE REACTION TO PRIOR INFUSION OF SAME. INFUSION COMPLETED AND TOLERATED WELL. DENIES QUESTIONS OR NEEDS AT DISCHARGE.
== END ==
LOC: M.INFUS 02-11 10:00
DX: D50.8 Other iron deficiency anemias (principal)

== ENCOUNTER → 2019-04-30 | Outpatient (CLI) | payer MEDICARE ==
[2019-04-30 17:20] LABS: ABSOLUTE BASOPHILS 0.1 thou/uL (0.0-0.2); ABSOLUTE EOSINOPHILS 0.1 thou/uL (0.0-0.7); ABSOLUTE LYMPHOCYTES 1.7 thou/uL (0.8-5.3); ABSOLUTE MONOCYTES 0.4 thou/uL (0.0-1.2); ABSOLUTE NEUTROPHILS 3.7 thou/uL (1.6-8.1); BASOPHILS 0.9 %; EOSINOPHILS 2.3 %; HEMATOCRIT 38.3 % (37.0-47.0); HEMOGLOBIN 13.1 gm/dL (12.0-15.0); MCH 32.5 pg (26.0-34.0); MCHC 34.4 g/dL (28.0-37.0); MCV 94.7 fL (80.0-100.0); MONOCYTES 6.3 %; NUCLEATED RBCS 0 /100WBC; PLATELET COUNT* 278 thou/uL (150-400); POLYS 62.5 %; RBC 4.04 mil/uL (4.20-5.00); RDW-CV 14.2 % (10.5-14.5); WBC 5.9 thou/uL (4.0-11.0)
[2019-04-30 17:48] LABS: % SATURATION 31 % (20-39); IRON 95 ug/dL (50-175)
== END ==
LOC: M.LAB 16:49
PROVIDERS: Internal Medicine
DX: D50.9 Iron deficiency anemia, unspecified (principal)